=== PATIENT | female | born 1975 | race Caucasian/White ===

== ENCOUNTER 2020-08-09 21:35 | Emergency (ER) | payer OTHER ==
[~2020-08-09] VITALS: Ht 160 cm; Wt 90.7 kg
[2020-08-09 21:39] VITALS: BP 147/90
--- NOTE | 2020-08-09 21:39 | NUR ---
to bed ambulatory
--- NOTE | 2020-08-09 21:49 | NUR ---
PATIENT AMBUALTED TO RESTROOM WITH STEADY GAIT TO PROVIDE UA SAMPLE.
--- NOTE | 2020-08-09 22:00 | NUR ---
44 Y/O FEMALE BIB SELF WITH C/O "SHARP" RADIATING PAIN TO RT ABD PAIN 04/06. STATES PAIN ORIGINATED TODAY THIS MORNING. STATES THAT SHE HAS BEEN HAVING THIS PAIN ON AND OFF. BUT THAT PAIN WOULD ALWAYS GO AWAY OR WOULD BE RELIEF. ABDOMEN WAS ROUND, SOFT NONTENDER TO TOUCH. ABDOMINAL SOUNDS WERE ACTIVE X 4 QUADRANTS. DENIES HAVING ANY N/V/D. PMHX: DENIES ALLX: ACETAMINOPHEN/HYDROCODONE
--- NOTE | 2020-08-09 22:14 | NUR ---
LORENA CASTILLO AT BEDSIDE FOR EVALUATION.
[2020-08-09] MEDS ORDERED: KETOROLAC 30 MG/ML VIAL IM ONE (22:20)
--- NOTE | 2020-08-09 22:28 | NUR ---
X-RAY AT BEDSIDE.
--- NOTE | 2020-08-09 23:32 | NUR ---
LORENA MICHAUD AT BEDSIDE FOR EVALUATION.
[2020-08-09] MEDS ORDERED: NACL 0.9% 1,000 ML IV ONE (23:45)
--- NOTE | 2020-08-09 23:54 | NUR ---
PT TAKEN TO CT VIA W/C.
--- NOTE | 2020-08-09 23:58 | NUR ---
PT RETURNED FROM CT.
--- NOTE | 2020-08-10 00:12 | NUR ---
LAB AT BEDSIDE FOR BLOOD DRAW.
[2020-08-10 00:32] LABS: BASOPHILS # (AUTO) 0.1 K/uL (0.00-0.22); BASOPHILS % (AUTO) 1.5 % (0.0-2.0); EOSINOPHILS # (AUTO) 0.2 K/uL (0-0.4); EOSINOPHILS % (AUTO) 2.7 % (0.0-4.0); HEMATOCRIT 32.3 % (36-48); HEMOGLOBIN 10.6 g/dL (12.0-16.0); LYMPHOCYTES % (AUTO) 33.9 % (20.5-51.1); MEAN CORPUSCULAR HEMOGLOBIN 27 pg (27-31); MEAN CORPUSCULAR HGB CONC 33 g/dL (33-37); MEAN CORPUSCULAR VOLUME 81.4 fL (80-94); MONOCYTES # (AUTO) 0.7 K/uL (0.8-1.0); MONOCYTES % (AUTO) 12.7 % (1.7-9.3); NEUTROPHILS # (AUTO) 2.9 K/uL (1.8-7.7); NEUTROPHILS % (AUTO) 49.2 % (42.2-75.2); PLATELET COUNT (AUTO) 279 K/uL (140-450); RED BLOOD CELL COUNT(AUTO) 3.97 MIL/uL (4.20-5.40); RED CELL DISTRIBUTION WIDTH 14.9 % (11.6-13.7); WHITE BLOOD COUNT (AUTO) 5.9 K/uL (4.8-10.8)
[2020-08-10 00:51] LABS: ALBUMIN 3.2 g/dL (3.4-5.0); ANION GAP 12.6 (8-16); CARBON DIOXIDE 26.2 mmol/L (21-32); CREATININE 0.8 mg/dL (0.6-1.3); POTASSIUM 3.8 mmol/L (3.5-5.1); TOTAL BILIRUBIN 0.2 mg/dL (0.0-1.0)
--- NOTE | 2020-08-10 00:51 | NUR ---
SPOKE WITH PATIENTS MOTHER CHINO JOYCEO AND PROVIDED UPDATED STATUS PER PT CONSENT.
[2020-08-10 00:52] LABS: BILIRUBIN,URINE NEGATIVE (NEGATIVE); BLOOD, URINE NEGATIVE (NEGATIVE); COLOR,URINE YELLOW (YELLOW); LEUKOCYTE ESTERASE ,URINE NEGATIVE (NEGATIVE); NITRITE, URINE NEGATIVE (NEGATIVE); PH,URINE 7.5 (5.0-9.0); UGLUCOSE NEGATIVE (NEGATIVE)
[2020-08-10] MEDS ORDERED: MAGNESIUM CITRATE 300 ML BTL PO ONE (01:00)
[2020-08-10 01:08] LABS: APPEARANCE,URINE SLIGHTLY HAZY (CLEAR)
[2020-08-10 01:09] LABS: RBC,URINE 0-5 /HPF (0-5)
--- NOTE | 2020-08-10 01:36 | NUR ---
US AT BEDSIDE.
[2020-08-10] MEDS ORDERED: cephALEXin 500 MG CAP PO SCH (02:30)
[2020-08-10] MEDS ORDERED: cephALEXin 500 MG CAP ONE (02:39)
--- NOTE | 2020-08-10 02:53 | NUR ---
Patient discharged with v/s stable. Written and verbal after care instructions given and explained. Patient alert, oriented and verbalized understanding of instructions. Ambulatory with steady gait. All questions addressed prior to discharge. ID band removed. Patient advised to follow up with PMD. Rx of KEFLEX given. Patient educated on indication of medication including possible reaction and side effects. Opportunity to ask questions provided and answered. IV removed, catheter intact and site benign. Applied folded 4x4 gauze and tape to stop bleeding.
[2020-08-10 02:54] VITALS: BP 134/80
== END 2020-08-10 02:54 | disposition home or self-care (01) ==
LOC: MED 21:35
DX: K59.00 Constipation, unspecified (principal); R10.10 Upper abdominal pain, unspecified; N39.0 Urinary tract infection, site not specified; Z88.6 Allergy status to analgesic agent; Z88.5 Allergy status to narcotic agent
CPT/HCPCS: 36415; 71045; 74176; 76705; 80053; 81001; 81025; 83690; 84484; 85025; 87086; 93005; 96360; 96372; 99285; J1885; J7030; 96361; 96374